=== PATIENT | female | born 1985 | race African-American/Black ===

== ENCOUNTER 2019-06-01 15:08 | Emergency (ER) | payer OTHER, SELFPAY ==
[2019-06-01 15:23] VITALS: BP 114/77; PULSE 97; RESP 18; TEMP 36.7; O2SAT 99
--- NOTE | 2019-06-01 15:26 | ED.GENADULT ---
HPI - General Adult General Chief complaint: Upper Respiratory Infection Stated complaint: Allergies/Sore Throat/Runny nose Time Seen by Provider: 06/01/19 15:43 Source: patient Mode of arrival: ambulatory Limitations: no limitations History of Present Illness HPI narrative: 33-year-old female patient presents to the [facility] with complaints sore throat and cold symptoms for the past 5 to 6 days. Patient denies any fevers. Patient denies any pain to the ears. Patient states she has had a stuffy nose, runny nose, drainage to the back the throat, sore throat and a slight nonproductive cough. Denies any chest pain or shortness of breath. Patient states she has tried [id number] Benadryl and an allergy pill along with some ibuprofen for her symptoms. Patient denies using humidifier. Patient states that she did get a flu shot this year. Related Data Allergies Allergy/AdvReac Type Severity Reaction Status Date / Time aspirin Allergy Unknown Rash Verified 06/01/19 15:34 Penicillins Allergy Unknown Anaphylaxis Verified 06/01/19 15:34 Review of Systems Review of Systems: Narrative: CONSTITUTIONAL: Denies fever, chills, or sweats. EYES: Denies visual changes, redness, or discharge. ENT: Positive rhinorrhea, congestion, sore throat, denies otalgia. CARDIOVASCULAR: Denies chest pain, palpitations, or edema. RESPIRATORY: Positive cough, denies dyspnea. GASTROINTESTINAL: Denies abdominal pain, nausea, vomiting, or diarrhea. GENITOURINARY: Denies dysuria or hematuria. SKIN: Denies rash or itching. MUSCULOSKELETAL: Denies back pain, joint pain, or myalgia. NEUROLOGIC: Denies headache, numbness, or weakness. PSYCHIATRIC: Denies anxiety or depression. PMFSH Social History Social History Gender identity (if verbalized by the patient): Female Comments At the time of my signature I agree with nursing past medical history, surgical, social, and family history. There is no relevant family history pertinent to the presenting complaint. Exam Narrative: Exam Narrative: GENERAL: Well-appearing, well-nourished, and in no acute distress. HEAD: Normocephalic, atraumatic. No tenderness noted to frontal and maxillary sinuses on palpation EYES: PERRLA and EOMI. ENT: Nares with erythema and edema noted bilaterally, no rhinorrhea or epistaxis. Mucous membranes moist. Posterior pharynx with slight erythema but no tonsil enlargement no exudates or lesions present. Bilateral TMs are clear with no erythema or foreign bodies in the canal. NECK: Supple. No lymphadenopathy CHEST: Clear to auscultation. No respiratory distress. HEART: Regular rate and rhythm. No murmur heard. Normal peripheral pulses. ABDOMEN: Soft, nontender, nondistended, normal active bowel sounds. EXTREMITIES: Normal range of motion. No edema. SKIN: Warm, dry, no rash. NEURO: No focal deficits. Alert and oriented x3. Course Vital Signs Vital signs: Vital Signs Temperature 36.7 C 06/01/19 15:23 Pulse Rate 97 06/01/19 15:23 Respiratory Rate 18 06/01/19 15:23 Blood Pressure 114/77 06/01/19 15:23 Pulse Oximetry 99 06/01/19 15:23 Temperature 36.7 C 06/01/19 15:23 Pulse Rate 97 06/01/19 15:23 Respiratory Rate 18 06/01/19 15:23 Blood Pressure 114/77 06/01/19 15:23 Pulse Oximetry 99 06/01/19 15:23 Vital signs reviewed. Medical Decision Making Differential Diagnosis Differential Diagnosis: Differential diagnosis: Allergic rhinitis, chronic sinusitis, tonsillitis, acute sinusitis, infectious mononucleosis, seasonal influenza, pertussis, diphtheria, meningococcal disease, viral syndrome, viral bronchitis, RSV. Discussed with patient that she does have some swelling noted to both nares which is most likely why she is got the drainage going to the back of her throat. Discussed with her I think that is the sinus drainage most likely causing the sore throat. Discussed with her that I want her to
== END 2019-06-01 15:53 | disposition home or self-care (01) ==
PROVIDERS: Emergency Provider Nurse Practitioner Family
DX: J06.9 Acute upper respiratory infection, unspecified (principal); J01.90 Acute sinusitis, unspecified; R05 Cough; J02.9 Acute pharyngitis, unspecified; R01.1 Cardiac murmur, unspecified
CPT/HCPCS: 99213; G0463

== ENCOUNTER 2020-09-30 13:25 | Emergency (ER) | payer OTHER, SELFPAY ==
[2020-09-30 13:35] VITALS: BP 110/67; PULSE 85; RESP 16; TEMP 36.6; O2SAT 100
--- NOTE | 2020-09-30 13:36 | ED.SKABFB ---
HPI - Skin/Abscess/Foreign Bdy General Chief complaint: Skin/Abscess/Foreign Body Stated complaint: Insect bite Time Seen by Provider: 09/30/20 13:38 Source: patient and RN notes reviewed Mode of arrival: ambulatory Limitations: no limitations History of Present Illness HPI narrative: 35-year-old female presents to the [facility] with complaints of being bit by bedbugs. States the bed she was sleeping in on September 28 that she was able to catch to bedbugs and kilogram. Has multiple bites that are big, red, swollen, warm to touch and extremely itchy. 2 to the right knee are 2 to half centimeters in diameter red, raised without fluctuance. Patient states they do itch. Denies fevers. No chest pain or shortness of breath. No abdominal pain. Related Data Home Medications Medication Instructions Recorded Confirmed ferrous sulfate 325 mg PO DAILY 09/30/20 09/30/20 multivit with min-folic acid 1 tablet PO DAILY 09/30/20 09/30/20 [Adult One Daily Multivitamin] Allergies Allergy/AdvReac Type Severity Reaction Status Date / Time aspirin Allergy Unknown Rash Verified 09/30/20 13:43 Penicillins Allergy Unknown Anaphylaxis Verified 09/30/20 13:43 diphenhydramine Allergy Unknown Verified 09/30/20 13:43 [From Benadryl] Review of Systems Review of Systems: All systems reviewed & are unremarkable except as noted in HPI and below Constitutional: Constitutional: Reports no additional constitutional complaints, Denies chills and Denies fever(s) Eyes: Eyes: Reports no additional eye complaints ENT: Reports system reviewed and no additional complaints, except as documented Cardiovascular: Cardiovascular: Reports no additional cardiovascular complaints and Denies chest pain Respiratory: Respiratory: Reports no additional respiratory complaints Gastrointestinal: Gastrointestinal: Reports no additional gastrointestinal complaints Musculoskeletal: Musculoskeletal: Reports no additional musculoskeletal complaints Integumentary/Breasts: Skin/Breast: Reports erythema (Bilateral legs, worse right knee. 1 upper chest) Neurologic: Reports system reviewed and no additional complaints, except as documented, Denies dizziness, Denies headache(s), Denies focal weakness and Denies numbness Psychiatric: Psychiatric: Reports no additional psychiatric complaints Allergic/Immunologic: Allergic/Immunologic: Reports no additional allergic/immunologic complaints, Denies lip swelling, Denies throat swelling, Denies tongue swelling and Denies wheezing PMFSH Social History Social History Gender identity (if verbalized by the patient): Female Comments At the time of my signature, I reviewed and agree with the nursing past medical, surgical, social, and family history. There is no relevant family history pertinent to the patient complaint. Exam Const: General: healthy appearing, no acute distress and alert Nutritional Appearance: well nourished Orientation/consciousness: patient oriented x3 Limitations: no limitations HENMT: Head: normal to inspection Eyes: Conjunctivae: conjunctivae normal Pupils: Equal, round and reactive pupils present Neck: Neck: normal visual inspection, no lymphadenopathy and no meningeal signs Chest: Chest palpation & inspection: normal inspection of the chest Resp: Effort & Inspection: normal respiratory effort and no use of accessory muscles Auscultation: clear to auscultation bilaterally, no crackles, no rales, no rhonchi and no wheezes Cardio: Rate: regular rate Rhythm: regular rhythm Skin: Rashes: no rashes Wounds: wounds noted Other: 2 areas anterior right knee, red swollen hot to touch. Right knee has no a fluctuant area. Multiple smaller red areas to his lower legs. 1 to the upper chest without signs of infection. Neuro: General: patient oriented x3, moves all extremities, no meningeal signs and no focal motor deficits Speech: normal speech Gai
[2020-09-30 13:45] VITALS: BP 110/67; PULSE 85; RESP 16; TEMP 36.6; O2SAT 100
== END 2020-09-30 13:49 | disposition home or self-care (01) ==
PROVIDERS: Emergency Provider Nurse Practitioner
DX: L08.9 Local infection of the skin and subcutaneous tissue, unspecified (principal); S80.261A Insect bite (nonvenomous), right knee, initial encounter; S80.862A Insect bite (nonvenomous), left lower leg, initial encounter; S80.861A Insect bite (nonvenomous), right lower leg, initial encounter; S20.369A Insect bite (nonvenomous) of unspecified front wall of thorax, initial encounter; W57.XXXA Bitten or stung by nonvenomous insect and other nonvenomous arthropods, initial encounter; R01.1 Cardiac murmur, unspecified
CPT/HCPCS: 99213; G0463

== ENCOUNTER 2020-12-26 13:05 | Emergency (ER) | payer OTHER, SELFPAY ==
[2020-12-26 13:10] VITALS: BP 116/68; PULSE 70; RESP 16; TEMP 36.8; O2SAT 100
--- NOTE | 2020-12-26 13:43 | ED.DENTAL ---
HPI - Dental/Oral General Chief complaint: Dental/Oral Stated complaint: gum pain Time Seen by Provider: 12/26/20 13:39 Source: patient and RN notes reviewed Mode of arrival: ambulatory Limitations: no limitations History of Present Illness HPI Narrative: Patient presents today complaining of upper and lower gum pain and swelling, blood with brushing x2 weeks. Denies pain in his tooth, but does report some left lower jaw swelling. Currently rates her pain 8/10 and has been taking Aleve with mild relief. Patient has an appointment with a dentist set up in January and February. MD Complaint: tooth pain (Gum pain) Related Data Home Medications Medication Instructions Recorded Confirmed ferrous sulfate 325 mg PO DAILY 09/30/20 09/30/20 multivit with min-folic acid 1 tablet PO DAILY 09/30/20 09/30/20 [Adult One Daily Multivitamin] Allergies Allergy/AdvReac Type Severity Reaction Status Date / Time aspirin Allergy Unknown Rash Verified 09/30/20 13:43 Penicillins Allergy Unknown Anaphylaxis Verified 09/30/20 13:43 diphenhydramine Allergy Unknown Verified 09/30/20 13:43 [From Bernardo] Review of Systems Review of Systems: CONSTITUTIONAL: Denies body aches, fever, chills, or sweats. EYES: Denies visual changes, redness, or discharge. ENT: Denies rhinorrhea, congestion, sore throat, or otalgia.+ Gum pain and swelling CARDIOVASCULAR: Denies chest pain, palpitations, or edema. RESPIRATORY: Denies cough or dyspnea. GASTROINTESTINAL: Denies abdominal pain, nausea, vomiting, or diarrhea. GENITOURINARY: Denies dysuria or hematuria. SKIN: Denies rash, itching, or wounds. MUSCULOSKELETAL: Denies back pain, joint pain, or myalgia. NEUROLOGIC: Denies headache, numbness, tingling, or weakness. PSYCH: Denies depression or anxiety. PMFSH Social History Social History Gender identity (if verbalized by the patient): Female Comments At time of signature, I have reviewed and agree with nursing past medical, surgical, social and family history unless otherwise noted. Please see nursing chart for further information. There is no relevant family history pertinent to the presenting complaint Exam Narrative: GENERAL: Well-appearing, well-nourished, and in no acute distress. HEAD: Normocephalic, atraumatic. EYES: EOMI. No redness or drainage. Conjunctivae normal. ENT: Mucous membranes pink and moist. Nares clear. No rhinorrhea. Throat normal. Uvula midline. Gums are erythematous and swollen on the upper and lower arches. No facial swelling noted. No obvious periapical abscesses noted. NECK: Normal AROM. Supple. No lymphadenopathy. CHEST: No respiratory distress. Clear to auscultation. HEART: Regular rate and rhythm. No murmur appreciated. Normal peripheral pulses. EXTREMITIES: Normal range of motion. No edema. SKIN: Warm, dry, no rash. Capillary refill normal. Normal skin turgor. NEURO: No focal deficits. Alert and oriented x3. Gait steady. PSYCH: Normal affect. No signs of depression or anxiety. Course Vital Signs Vital signs: Vital Signs Temperature 98.2 F 12/26/20 13:10 Pulse Rate 70 12/26/20 13:10 Respiratory Rate 16 12/26/20 13:10 Blood Pressure 116/68 12/26/20 13:10 Pulse Oximetry 100 12/26/20 13:10 Temperature 98.2 F 12/26/20 13:10 Pulse Rate 70 12/26/20 13:10 Respiratory Rate 16 12/26/20 13:10 Blood Pressure 116/68 12/26/20 13:10 Pulse Oximetry 100 12/26/20 13:10 Reviewed MDM - Dental/Oral Differential Diagnosis Differential diagnosis: Likely gingival abscess, dental caries, toothache, dental abscess and other (Gingivitis) Critical Care Time Critical Care Time Critical Care Time: No Discharge Plan Discharge Clinical Impression: Gingivitis Patient Disposition: Home, Self-Care Condition: Stable Instructions: Antibiotic Form, Gingivitis (ED) Additional Instructions: Please take the clindamyci
== END 2020-12-26 13:50 | disposition home or self-care (01) ==
PROVIDERS: Emergency Provider Nurse Practitioner
DX: K05.10 Chronic gingivitis, plaque induced (principal); R01.1 Cardiac murmur, unspecified
CPT/HCPCS: 99213; G0463

== ENCOUNTER 2022-12-02 19:18 | Emergency (ER) | payer OTHER, SELFPAY ==
[2022-12-02 19:33] VITALS: BP 120/82; PULSE 93; RESP 18; TEMP 36.8; O2SAT 100
--- NOTE | 2022-12-02 20:01 | ED.URI ---
HPI - URI/Sore Throat General Chief Complaint: Upper Respiratory Infection Stated Complaint: Sore Throat Time Seen by Provider: 12/02/22 19:55 Source: patient and RN notes reviewed Mode of arrival: ambulatory Limitations: no limitations History of Present Illness HPI Narrative: Patient presents today with a 5-6 day history of hoarseness, rhinorrhea, congestion, sore throat. Cough appeared today. Denies fever. She has been taking sinus medication without relief. History of tonsillectomy. Denies sick contacts. Related Data Home Medications Medication Instructions Recorded Confirmed ferrous sulfate 325 mg (65 mg 325 mg PO DAILY 09/30/20 12/02/22 iron) tablet multivitamin with minerals-folic 1 tablet PO DAILY 09/30/20 12/02/22 acid 0.4 mg tablet (Adult One Daily Multivitamin) Allergies Allergy/AdvReac Type Severity Reaction Status Date / Time aspirin Allergy Unknown Rash Verified 12/02/22 19:31 Penicillins Allergy Unknown Anaphylaxis Verified 12/02/22 19:31 diphenhydramine Allergy Unknown Verified 12/02/22 19:31 [From Bernardo] Review of Systems Review of Systems: CONSTITUTIONAL: Denies body aches, fever, chills, or sweats. EYES: Denies visual changes, redness, or discharge. ENT: Denies otalgia.+ rhinorrhea, congestion, hoarseness, sore throat CARDIOVASCULAR: Denies chest pain, palpitations, or edema. RESPIRATORY: Denies dyspnea.+ cough GASTROINTESTINAL: Denies abdominal pain, nausea, vomiting, or diarrhea. GENITOURINARY: Denies dysuria or hematuria. SKIN: Denies rash, itching, or wounds. MUSCULOSKELETAL: Denies back pain, joint pain, or myalgia. NEUROLOGIC: Denies headache, numbness, tingling, or weakness. PSYCH: Denies depression or anxiety. [facility] Surgical History Surgical History (Updated 12/02/22 @ 20:03 by Mini Amin, JEREMY, BC) Hx of tonsillectomy Social History Social History Gender identity (if verbalized by the patient): Female Comments At time of signature, I have reviewed and agree with nursing past medical, surgical, social and family history unless otherwise noted. Please see nursing chart for further information. There is no relevant family history pertinent to the presenting complaint Exam Narrative: GENERAL: Mildly ill-appearing, well-nourished, and in no acute distress. HEAD: Normocephalic, atraumatic. EYES: EOMI. No redness or drainage. Conjunctivae normal. ENT: Mucous membranes pink and moist. Nares congested with rhinorrhea. TMs normal bilaterally. Throat mildly erythematous. Uvula midline. Voice is hoarse NECK: Normal AROM. Supple. No lymphadenopathy. CHEST: No respiratory distress. Clear to auscultation. HEART: Regular rate and rhythm. No murmur appreciated. Normal peripheral pulses. EXTREMITIES: Normal range of motion. No edema. SKIN: Warm, dry, no rash. Capillary refill normal. Normal skin turgor. NEURO: No focal deficits. Alert and oriented x3. Gait steady. PSYCH: Normal affect. No signs of depression or anxiety. Course Course Level of Care: Express Care Visit Vital Signs Vital signs: Vital Signs Temperature 98.3 F 12/02/22 19:33 Pulse Rate 93 12/02/22 19:33 Respiratory Rate 18 12/02/22 19:33 Blood Pressure 120/82 12/02/22 19:33 Pulse Oximetry 100 12/02/22 19:33 Oxygen Delivery Room Air 12/02/22 19:33 Temperature 98.3 F 12/02/22 19:33 Pulse Rate 93 12/02/22 19:33 Respiratory Rate 18 12/02/22 19:33 Blood Pressure 120/82 12/02/22 19:33 Pulse Oximetry 100 12/02/22 19:33 Oxygen Delivery Room Air 12/02/22 19:33 Reviewed. Pt has been instructed to follow up with her PCP regarding her elevated blood pressure today. MDM - URI/Sore Throat MDM Narrative Medical decision making narrative: Rapid strep negative. Symptoms likely viral in etiology. Will treat with prednisone and Tessalon Perles. Anticipatory guidance given. Diff
== END 2022-12-02 20:39 | disposition home or self-care (01) ==
PROVIDERS: Emergency Provider Nurse Practitioner
DX: J06.9 Acute upper respiratory infection, unspecified (principal)
CPT/HCPCS: 87081; 87880; 99213; G0463

== ENCOUNTER 2022-12-20 08:49 | Emergency (ER) | payer OTHER, SELFPAY ==
[2022-12-20 09:02] VITALS: BP 129/71; PULSE 79; RESP 16; TEMP 36.9; O2SAT 100
--- NOTE | 2022-12-20 09:11 | ED.SKABFB ---
HPI - Skin/Abscess/Foreign Bdy General Chief complaint: Skin/Abscess/Foreign Body Stated complaint: spot right side of face Time Seen by Provider: 12/20/22 09:11 Source: patient Mode of arrival: ambulatory Limitations: no limitations History of Present Illness HPI narrative: 37-year-old female presents with swollen, tender area to right cheek for 2 days. Patient concerned for spider bite. Afebrile. No other complaints today. All systems reviewed and negative except as noted above. Related Data Home Medications Medication Instructions Recorded Confirmed ferrous sulfate 325 mg (65 mg 325 mg PO DAILY 09/30/20 12/02/22 iron) tablet multivitamin with minerals-folic 1 tablet PO DAILY 09/30/20 12/02/22 acid 0.4 mg tablet (Adult One Daily Multivitamin) Allergies Allergy/AdvReac Type Severity Reaction Status Date / Time aspirin Allergy Unknown Rash Verified 12/02/22 19:31 Penicillins Allergy Unknown Anaphylaxis Verified 12/02/22 19:31 diphenhydramine Allergy Unknown Verified 12/02/22 19:31 [facility] Review of Systems Review of Systems: CONSTITUTIONAL: Denies fever, chills, or sweats. EYES: Denies visual changes, redness, or discharge. ENT: Denies rhinorrhea, congestion, sore throat, or otalgia. CARDIOVASCULAR: Denies chest pain, palpitations, or edema. RESPIRATORY: Denies cough or dyspnea. GASTROINTESTINAL: Denies abdominal pain, nausea, vomiting, or diarrhea. GENITOURINARY: Denies dysuria or hematuria. SKIN: Denies rash or itching. Patient reports swollen, tender area to right cheek. MUSCULOSKELETAL: Denies back pain, joint pain, or myalgia. NEUROLOGIC: Denies headache, numbness, or weakness. PSYCHIATRIC: Denies anxiety or depression. All other systems reviewed are negative, except as documented in HPI. [facility] Surgical History Surgical History (Updated 12/02/22 @ 20:03 by Mini Amin, JEREMY, TERA) Hx of tonsillectomy Social History Social History Gender identity (if verbalized by the patient): Female Comments At time of signature, agree with nursing past medical, surgical, social and family history. There is no relevant family history pertinent to the presenting complaint. Exam Narrative: GENERAL: This is a well-nourished, well-developed patient, in no apparent distress. HEAD: normocephalic, atraumatic. EYES: PERRL. Sclera clear/white. Vision is grossly intact. EARS: External ears normal NOSE: External nose normal NECK: Neck supple, non-tender without lymphadenopathy, masses or thyromegaly. CARDIOVASCULAR: Regular rate and rhythm without murmurs, gallops, or rubs. RESPIRATORY: Clear to auscultation. Breath sounds equal bilaterally. No wheezes, rales, or rhonchi. SKIN: warm, Dry, intact with no suspicious rash, good texture and turgor. erythematous pimple to R nasolabial fold. approx. 1cm diameter. tender on palpation. no fluctuance. NEURO: awake, alert, and oriented to person, place and time. There were no obvious focal neurologic abnormalities. EXTREMITIES: No joint tenderness, effusion, or edema noted. Course Course Level of Care: Express Care Visit Vital Signs Vital signs: Vital Signs Temperature 36.9 C 12/20/22 09:02 Pulse Rate 79 12/20/22 09:02 Respiratory Rate 16 12/20/22 09:02 Blood Pressure 129/71 12/20/22 09:02 Pulse Oximetry 100 12/20/22 09:02 Oxygen Delivery Room Air 12/20/22 09:02 Temperature 36.9 C 12/20/22 09:02 Pulse Rate 79 12/20/22 09:02 Respiratory Rate 16 12/20/22 09:02 Blood Pressure 129/71 12/20/22 09:02 Pulse Oximetry 100 12/20/22 09:02 Oxygen Delivery Room Air 12/20/22 09:02 Reviewed MDM - Skin/Abscess/Foreign Bdy MDM Narrative Medical decision making narrative: Patient is aware of diagnosis, understands and agrees to treatment plan. Anticipatory guidance given. Patient agrees to follow-up as directed and is aware
== END 2022-12-20 09:54 | disposition home or self-care (01) ==
PROVIDERS: Emergency Provider Nurse Practitioner Family; PCP Registered Nurse
DX: R23.8 Other skin changes (principal)
CPT/HCPCS: 99211; G0463

== ENCOUNTER 2023-04-09 12:43 | Emergency (ER) | payer OTHER, SELFPAY ==
[2023-04-09 13:02] VITALS: BP 111/66; PULSE 122; RESP 16; TEMP 38.9; O2SAT 98
--- NOTE | 2023-04-09 13:17 | ED.URI ---
HPI - URI/Sore Throat General Chief Complaint: Upper Respiratory Infection Stated Complaint: dizzy,fever Time Seen by Provider: 04/09/23 13:17 Source: patient and RN notes reviewed Mode of arrival: ambulatory Limitations: no limitations History of Present Illness HPI Narrative: 37-year-old female presented for complaint of headache, sore throat, fever, body aches. Onset last night. Endorses son tested positive for influenza 2 days ago. Not taking anything for symptoms. Denies shortness of breath, wheezing, nausea, vomiting, diarrhea, or lethargy. MD elicited complaint: cough Related Data Home Medications Medication Instructions Recorded Confirmed ferrous sulfate 325 mg (65 mg 325 mg PO DAILY 09/30/20 12/02/22 iron) tablet multivitamin with minerals-folic 1 tablet PO DAILY 09/30/20 12/02/22 acid 0.4 mg tablet (Adult One Daily Multivitamin) Allergies Allergy/AdvReac Type Severity Reaction Status Date / Time aspirin Allergy Unknown Rash Verified 12/02/22 19:31 Penicillins Allergy Unknown Anaphylaxis Verified 12/02/22 19:31 diphenhydramine Allergy Unknown Verified 12/02/22 19:31 [facility] Review of Systems Review of Systems: CONSTITUTIONAL: Endorses malaise, chills, sweats, fever EYES: Denies visual changes, redness, or discharge ENT: Reports rhinorrhea, congestion, sore throat denies pain, otalgia CARDIOVASCULAR: Denies chest pain, palpitations, edema RESPIRATORY: Reports cough, Denies dyspnea GASTROINTESTINAL: Denies abdominal pain, nausea, vomiting, diarrhea SKIN: Denies rash or itching MUSCULOSKELETAL: Endorses myalgia NEUROLOGIC: Endorses headache PMFSH Past Medical History Medical History (Updated 04/09/23 @ 13:36 by Alayna Leroy APRN) No pertinent past medical history Surgical History Surgical History Hx of tonsillectomy Social History Social History Gender identity (if verbalized by the patient): Female Exam Narrative: GENERAL: Ill-appearing, nontoxic no acute distress. EYES: PERRLA, conjunctivae clear ENT: Mucous membranes moist. TM pearly pizarro with dull light reflex bilaterally; no tragal tenderness. Oropharynx mildly erythematous without lesions or exudate, no drooling, no hoarseness, no trismus, uvula midline. No tripod positioning, muffled voice, soft palate or pharyngeal wall bulging NECK: Supple. No lymphadenopathy CHEST: Clear to auscultation, breath sounds equal. No wheezing, rhonchi, rales, or stridor. No respiratory distress, speaks in full sentences. HEART: Regular rate and rhythm. No murmur heard. SKIN: Warm, dry, no rash. NEURO: Alert and oriented x3. PSYCH: Normal mood and affect Course Course Emergency Course: Patient is aware of diagnosis, understands and agrees to treatment plan. Anticipatory guidance given. Patient agrees to follow-up as directed and is aware of reasons to seek care at the emergency department. Portions of this record may have been created with voice recognition software Level of Care: Express Care Visit Vital Signs Vital signs: Vital Signs Temperature 102.0 F H 04/09/23 13:02 Pulse Rate 122 H 04/09/23 13:02 Respiratory Rate 16 04/09/23 13:02 Blood Pressure 111/66 04/09/23 13:02 Pulse Oximetry 98 04/09/23 13:02 Oxygen Delivery Room Air 04/09/23 13:02 Temperature 102.0 F H 04/09/23 13:02 Pulse Rate 122 H 04/09/23 13:02 Respiratory Rate 16 04/09/23 13:02 Blood Pressure 111/66 04/09/23 13:02 Pulse Oximetry 98 04/09/23 13:02 Oxygen Delivery Room Air 04/09/23 13:02 reviewed MDM - URI/Sore Throat MDM Narrative Medical decision making narrative: Positive flu. Discussed physical exam findings. Discussed risks and benefits associated with Tamiflu, she requests a prescription. Advised supportive measures and signs/symptoms to go to the ER. Pt is leonardoia
== END 2023-04-09 13:39 | disposition home or self-care (01) ==
PROVIDERS: Emergency Provider Nurse Practitioner Family; PCP Registered Nurse
DX: J10.1 Influenza due to other identified influenza virus with other respiratory manifestations (principal); Z20.822 Contact with and (suspected) exposure to COVID-19
CPT/HCPCS: 87081; 87426; 87804; 87880; 99213; G0463

== ENCOUNTER 2023-09-16 17:07 | Emergency (ER) | payer OTHER, SELFPAY ==
[2023-09-16 17:18] VITALS: BP 113/65; PULSE 98; RESP 16; TEMP 37.1; O2SAT 100
--- NOTE | 2023-09-16 17:34 | ED.SKABFB ---
HPI - Skin/Abscess/Foreign Bdy General Chief complaint: Skin/Abscess/Foreign Body Stated complaint: Insect Bites on Leg and Nausea Time Seen by Provider: 09/16/23 17:31 Source: patient and RN notes reviewed Mode of arrival: ambulatory Limitations: no limitations History of Present Illness HPI narrative: 38-year-old female presents concern for bedbug bites. Reports she sat on her cousins couch and when she left she had bites in in the area of her exposed skin on the back of her legs. She reports since then she has not got any more bites or spread for rash. She reports she has put home remedies on without relief of itching. Reports the bites are starting to become swollen. She denies swollen lips, swollen tongue, trouble breathing MD complaint: insect bite/sting Related Data Home Medications Medication Instructions Recorded Confirmed ferrous sulfate 325 mg (65 mg 325 mg PO DAILY 09/30/20 12/02/22 iron) tablet multivitamin with minerals-folic 1 tablet PO DAILY 09/30/20 12/02/22 acid 0.4 mg tablet (Adult One Daily Multivitamin) Allergies Allergy/AdvReac Type Severity Reaction Status Date / Time aspirin Allergy Unknown Rash Verified 09/16/23 17:24 Penicillins Allergy Unknown Anaphylaxis Verified 09/16/23 17:24 diphenhydramine Allergy Unknown Verified 09/16/23 17:24 [From [facility]] Review of Systems Review of Systems: CONSTITUTIONAL: Denies malaise, chills, sweats, or fever. EYES: Denies redness, or discharge. ENT: Denies rhinorrhea, congestion, swollen lips, swollen tongue CARDIOVASCULAR: Denies chest pain, palpitations, or edema. RESPIRATORY: Denies cough or dyspnea. GASTROINTESTINAL: Denies abdominal pain, nausea, vomiting SKIN: Reports a 2 swollen insect bites on the back of her legs MUSCULOSKELETAL: Denies joint pain or myalgia. NEUROLOGIC: Denies headache. All systems reviewed & are unremarkable except as noted in HPI and below PMFSH Past Medical History Medical History (Updated 09/16/23 @ 17:40 by Pebbles Guy NP) No pertinent past medical history Surgical History Surgical History Hx of tonsillectomy Social History Social History Gender identity (if verbalized by the patient): Female Comments At time of signature, agree with nursing past medical, surgical, social and family history. There is no relevant family history pertinent to the presenting complaint Exam Narrative: GENERAL: Well-appearing, well-nourished, and in no acute distress. HEAD: Normocephalic, atraumatic. EYES: PERRLA, conjunctivae clear, and EOMI. ENT: Mucous membranes moist. Oropharynx without edema, erythema or lesions. NECK: Supple. No lymphadenopathy CHEST: Clear to auscultation. No respiratory distress. HEART: Regular rate and rhythm. SKIN: Warm, dry. Erythematous papules, some mild swelling noted to the posterior legs NEURO: Alert and oriented x3. PSYCH: Normal mood and affect Course Course Emergency Course: Patient is aware of diagnosis, understands and agrees to treatment plan. Anticipatory guidance given. Patient agrees to follow-up as directed and is aware of reasons to seek care at the emergency department. Portions of this record may have been created with voice recognition software Level of Care: Express Care Visit Vital Signs Vital signs: Vital Signs Temperature 98.8 F 09/16/23 17:18 Pulse Rate 98 09/16/23 17:18 Respiratory Rate 16 09/16/23 17:18 Blood Pressure 113/65 09/16/23 17:18 Pulse Oximetry 100 09/16/23 17:18 Oxygen Delivery Room Air 09/16/23 17:18 Temperature 98.8 F 09/16/23 17:18 Pulse Rate 98 09/16/23 17:18 Respiratory Rate 16 09/16/23 17:18 Blood Pressure 113/65 09/16/23 17:18 Pulse Oximetry 100 09/16/23 17:18 Oxygen Delivery Room Air 09/16/23 17:18 Reviewed. MDM - Skin/Abscess/Foreign Bdy MDM Narrative
== END 2023-09-16 17:45 | disposition home or self-care (01) ==
PROVIDERS: Emergency Provider Nurse Practitioner; PCP Registered Nurse
DX: S80.862A Insect bite (nonvenomous), left lower leg, initial encounter (principal); S80.861A Insect bite (nonvenomous), right lower leg, initial encounter; W57.XXXA Bitten or stung by nonvenomous insect and other nonvenomous arthropods, initial encounter
CPT/HCPCS: 99213; G0463

== ENCOUNTER 2024-02-03 15:12 | Emergency (ER) | payer SELFPAY ==
--- NOTE | 2024-02-03 15:25 | ED.URI ---
HPI - URI/Sore Throat General Chief Complaint: Upper Respiratory Infection Stated Complaint: Sore Throat Time Seen by Provider: 02/03/24 15:25 Source: patient Mode of arrival: ambulatory Limitations: no limitations History of Present Illness HPI Narrative: 38-year-old female presents with complaint of cough, chest congestion, fatigue, low-grade fever, sore throat for 3-4 days. No chest pain or shortness of breath. Taking [id number] Robitussin to treat symptoms. Patient reports that her son has had exposure to pneumonia from school. They are both sick with similar symptoms. all systems reviewed and negative except as noted above. Related Data Home Medications Medication Instructions Recorded Confirmed ferrous sulfate 325 mg (65 mg 325 mg PO DAILY 09/30/20 12/02/22 iron) tablet Allergies Allergy/AdvReac Type Severity Reaction Status Date / Time aspirin Allergy Unknown Rash Verified 02/03/24 15:20 Penicillins Allergy Unknown Anaphylaxis Verified 02/03/24 15:20 diphenhydramine Allergy Unknown Verified 02/03/24 15:20 [From [facility]] Review of Systems Review of Systems: CONSTITUTIONAL: reports fever, chills, or sweats. EYES: Denies visual changes, redness, or discharge. ENT: reports rhinorrhea, congestion, sore throat. Denies otalgia. CARDIOVASCULAR: Denies chest pain, palpitations, or edema. RESPIRATORY: Reports cough. Denies dyspnea. GASTROINTESTINAL: Denies abdominal pain, nausea, vomiting, or diarrhea. GENITOURINARY: Denies dysuria or hematuria. SKIN: Denies rash or itching. MUSCULOSKELETAL: Denies back pain, joint pain, or myalgia. NEUROLOGIC: Denies headache, numbness, or weakness. PSYCHIATRIC: Denies anxiety or depression. All other systems reviewed are negative, except as documented in HPI. [facility] Past Medical History Medical History (Updated 02/03/24 @ 15:51 by Aminata Kovacs NP) No pertinent past medical history Surgical History Surgical History Hx of tonsillectomy Social History Social History Gender identity (if verbalized by the patient): Female Comments At time of signature, agree with nursing past medical, surgical, social and family history. There is no relevant family history pertinent to the presenting complaint. Exam Narrative: GENERAL: This is a well-nourished, well-developed patient, ill-appearing but no acute distress HEAD: normocephalic, atraumatic. EYES: PERRL. Sclera clear/white. Vision is grossly intact. EARS: External ears normal, auditory canals clear and without drainage, TMs normal without perforation. Hearing grossly intact. NOSE: External nose normal with clear nasal drainage, mild congestion, erythema to bilateral nares THROAT: Mucous membranes moist, erythematous with postnasal drainage NECK: Neck supple, non-tender without lymphadenopathy, masses or thyromegaly. CARDIOVASCULAR: Regular rate and rhythm without murmurs, gallops, or rubs. RESPIRATORY: Clear to auscultation. Breath sounds equal bilaterally. No wheezes, rales, or rhonchi. SKIN: warm, Dry, intact with no suspicious lesions or rash, good texture and turgor. NEURO: awake, alert, and oriented to person, place and time. There were no obvious focal neurologic abnormalities. EXTREMITIES: No joint tenderness, effusion, or edema noted. Course Course Level of Care: Express Care Visit Vital Signs Vital signs: Vital Signs Temperature 37.7 C H 02/03/24 15:31 Pulse Rate 86 02/03/24 15:31 Respiratory Rate 20 02/03/24 15:31 Blood Pressure 106/73 02/03/24 15:31 Pulse Oximetry 100 02/03/24 15:31 Oxygen Delivery Room Air 02/03/24 15:31 Temperature 37.7 C H 02/03/24 15:31 Pulse Rate 86 02/03/24 15:31 Respiratory Rate 20 02/03/24 15:31 Blood Pressure 106/73 02/03/24 15:31 Pulse Oximetry 100 02/03/24 15:31 Oxygen Delivery Room Air 02/03/24 15:31 reviewed MDM - URI/Sore Throat MDM Narrative Medical decision making narrative: negative COVID, influenza and strep. Strep culture ordered. Will treat patient with antibiotic due to pneumonia exposure. Patient is aware of diagnosis, understands and agrees to treatment plan. Anticipatory guidance given. Patient agrees to follow-up as directed and is aware of reasons to seek care at the emergency department. Portions of this record may have been created with voice recognition software Lab Data Labs: Lab Results 02/03/24 02/03/24 Range/Units 15:35 15:45 POC Influenza A Ag Negative (Negative) POC Influenza B Ag Negative (Negative) POC SARS CoV-2 Ag Negative (Negative) POC Grp A Strep Screen Negative (Negative) Discharge Plan Discharge Clinical Impression: Upper respiratory infection with cough and congestion, Exposure to pneumonia Patient Disposition: Home, Self-Care Condition: Stable Instructions: Antibiotic Form, Community Acquired Pneumonia (DC) Additional Instructions: Your COVID, influenza and strep test were negative today. take antibiotic as prescribed until gone. Continue taking [id number] medication to treat her symptoms such as DayQuil NyQuil cold and flu. Drink at least 64 oz of water a day. Follow-up with your primary care physician if symptoms are not improving. Prescriptions: New azithromycin 250 mg tablet See Rx Instructions .ROUTE .COMPLEX Qty: 6 0RF Rx Instructions: For 250 mg dose pack: take 500 mg today (day 1), then 250 mg for 4 days (days 2-5) No Action ferrous sulfate 325 mg (65 mg iron) Tablet 325 mg PO DAILY Follow-up/Referrals: Mariana,MILAGROS Salazar [Primary Care Provider] - Time of Disposition: 15:51
[2024-02-03 15:31] VITALS: BP 106/73; PULSE 86; RESP 20; TEMP 37.7; O2SAT 100
[2024-02-03 15:43] LABS: EDSTREPNEGPOS1 Negative (Negative)
[2024-02-03 15:53] LABS: EDCOVIDSCREEN Negative (Negative); EDINFLUASCREEN Negative (Negative); EDINFLUBSCREEN Negative (Negative)
== END 2024-02-03 15:55 | disposition home or self-care (01) ==
PROVIDERS: Emergency Provider Nurse Practitioner Family; PCP Registered Nurse
DX: J06.9 Acute upper respiratory infection, unspecified (principal); R05.9 Cough, unspecified; Z20.89 Contact with and (suspected) exposure to other communicable diseases; Z20.822 Contact with and (suspected) exposure to COVID-19
CPT/HCPCS: 87081; 87426; 87804; 87880; 99213; G0463

== ENCOUNTER 2024-12-13 18:35 | Emergency (ER) | payer BC, SELFPAY ==
[2024-12-13 18:43] VITALS: BP 109/69; PULSE 84; RESP 16; TEMP 36.7; O2SAT 100
--- NOTE | 2024-12-13 18:48 | ED_ITS ---
HPI - URI/Sore Throat General Chief Complaint: Fever Stated Complaint: Fever/Chills Time Seen by Provider: 12/13/24 18:38 Source: patient Mode of arrival: ambulatory Limitations: no limitations History of Present Illness HPI Narrative: Patient is a 39-year-old female who presents with 1 day of congestion drainage, cough, throat irritation from a fever. Patient has history of asthma. Patient has used inhaler today, Robitussin, DayQuil/NyQuil and Claritin. Related Data Home Medications ?Medication ?Instructions ?Recorded ?Confirmed ?Last Taken ?Type ferrous sulfate 325 mg (65 mg 325 mg PO DAILY 09/30/20 12/02/22 Unknown History iron) tablet cetirizine 10 mg tablet mg 12/13/24 Unknown History ergocalciferol (vitamin D2) 1,250 12/13/24 Unknown H istory mcg (50,000 unit) capsule omeprazole 40 mg capsule,delayed mg 12/13/24 Unknown History release prednisone 20 mg tablet mg 12/13/24 Unknown History Allergies Allergy/AdvReac Type Severity Reaction Status Date / Time aspirin Allergy Unknown Rash Verified 12/13/24 18:41 Penicillins Allergy Unknown Anaphylaxis Verified 12/13/24 18:41 diphenhydramine (From Allergy Unknown Verified 12/13/24 18:41 Benadryl) Review of Systems Review of Systems: All systems reviewed & are unremarkable except as noted in HPI and below Constitutional: Constitutional: Denies chills, Denies fatigue, Reports fever(s), Denies headache(s), Denies malaise and Denies weakness Eyes: Eyes: Denies blurry vision, Denies itchy eyes and Denies loss of vision ENT: Denies otalgia, Denies headache(s), Reports nasal congestion, Denies sinus pain and Reports sore throat Cardiovascular: Cardiovascular: Denies chest pain, Denies irregular heart rhythm and Denies dyspnea Respiratory: Respiratory: Reports cough and Denies dyspnea Gastrointestinal: Gastrointestinal: Denies abdominal pain, Denies diarrhea, Denies nausea and Denies vomiting Musculoskeletal: Musculoskeletal: Denies back pain, Denies myalgias and Denies arthralgias Integumentary/Breasts: Skin/Breast: Denies pruritus and Denies rash Neurologic: Denies headache(s), Denies loss of vision and Denies weakness Psychiatric: Psychiatric: Reports no additional psychiatric complaints Endocrine: Endocrine: Denies fatigue Allergic/Immunologic: Allergic/Immunologic: Denies itchy eyes PMFSH Past Medical History Medical History No pertinent past medical history Surgical History Surgical History Hx of tonsillectomy Social History Social History Gender identity (if verbalized by the patient): Female Comments At time of signature, agree with nursing past medical, surgical, social and family history. There is no relevant family history pertinent to the presenting complaint. Exam Const: General: cooperative, healthy appearing, comfortable, no acute distress and well nourished Nutritional Appearance: well nourished Orientation/consciousness: patient oriented x3 Limitations: no limitations HENMT: Head: normal to inspection, normocephalic and atraumatic Ears: hearing grossly normal bilaterally, external ears normal, TM's normal bilaterally, EAC's normal and no periauricular adenopathy Face/Nose/Sinus: Normal external nose present, Abnormal mucous membranes and turbinates present erythematous bilateral and diffuse, normal facial exam, sinuses nontender and face symmetric Face and sinus: normal facial exam, sinuses nontender and face symmetric Mouth: Yes Normal oral and palatal mucosa present, Yes lip normal, Yes tongue normal, Yes Normal salivary glands and ducts present, Yes oropharynx normal and Yes moist mucous membranes Teeth and gingiva: dentition normal Throat: posterior oropharynx normal, tonsils normal and uvula midline Eyes: General: appearance normal, both eyes and all related structures Alignment and Position: alignment normal and position normal Periorbital: periorbital findings normal Eyelids: eyelids normal Pupils: Equal, round and reactive pupils present Neck: Neck: normal visual inspection, full ROM, no lymphadenopathy and supple Chest: Chest palpation & inspection: normal inspection of the chest and normal palpation of entire chest wall Resp: Effort & Inspection: normal respiratory effort and able to speak in complete sentences Auscultation: clear to auscultation bilaterally, no crackles, no rales, no rhonchi and no wheezes Cardio: Rate: regular rate Rhythm: regular rhythm Heart sounds: S1 normal heart sound present and S2 normal heart sound present GI: Inspection: normal to inspection Skin: General skin exam: normal color and no rashes or lesions noted Neuro: General: patient oriented x3 and moves all extremities Cranial nerves: Yes Equal, round and reactive pupils present Speech: normal speech Gait exam (Neuro): Normal gait present Extrem: General: normal to inspection, full ROM and no edema Psych: Appearance: grossly normal and well kempt Mental Status: mental status grossly normal Speech and movement: Normal speech and movement present Affect: normal affect Attitude: cooperative Thought process: Normal thought process present Course Course Emergency Course: Discharge instructions reviewed with patient, as well as provided in writing pe r nursing staff. The instructions also include specific and strict return/GO TO THE ER as well as f/u information. All questions have been answered, and the patient deny any further questions with discharge and discharge plan. Portions of this record may have been created with voice recognition software Level of Care: Express Care Visit Vital Signs Vital signs: Vital Signs Temperature 36.7 C 12/13/24 18:43 Pulse Rate 84 12/13/24 18:43 Respiratory Rate 16 12/13/24 18:43 Blood Pressure 109/69 12/13/24 18:43 Pulse Oximetry 100 12/13/24 18:43 Oxygen Delivery Room Air 12/13/24 18:43 Temperature 36.7 C 12/13/24 18:43 Pulse Rate 84 12/13/24 18:43 Respiratory Rate 16 12/13/24 18:43 Blood Pressure 109/69 12/13/24 18:43 Pulse Oximetry 100 12/13/24 18:43 Oxygen Delivery Room Air 12/13/24 18:43 Reviewed MDM - URI/Sore Throat MDM Narrative Medical decision making narrative: Pt well hydrated appearing, in no respiratory distress, hemodynamically stable. Recommend supportive care. The patient is stable at time of discharge the clinical impression was discussed and the patient was given the opportunity to ask questions, which were addressed as completely as possible given the information available at present. Anticipatory guidance and return to care precautions were discussed and the importance of primary care follow-up was stressed and encouraged. The patient voiced understanding of the plan, indications to return, and the need for follow-up. Exam findings show no acute concerns or changes Patient is appropriate for outpatient treatment and follow-up. Differential diagnosis considered: [place] virus, strep pharyngitis, allergic rhinitis, upper respiratory tract infection, sinusitis, rhinosinusitis, nasopharyngitis. viral pharyngitis, otitis media, otitis externa, otitis effusion, foreign body, cerumen impaction, viral syndrome, and influenza.? Medical Records Attestation: I reviewed the patient's medical records. Lab Data Attestation: I reviewed the patient's lab results. Labs: Lab Results 12/13/24 Range/Units 18:50 POC Influenza A Ag Negative (Negative) POC Influenza B Ag Negative (Negative) POC SARS CoV-2 Ag Negative (Negative) Discharge Plan Discharge Clinical Impression: Acute upper respiratory infection Patient Disposition: Home Condition: Stable Instructions: Upper Respiratory Infection (ED) Additional Instructions: Your Covid and flu are both negative Your symptoms are likely due to a viral illness, which is not treated with antibiotics. Viral symptoms can be present for up to a few weeks. -For pain/fever, you may take: Tylenol 650-1000mg by mouth every 4-6 hours. Do not exceed 4000mg in 24 hours. Advil (Ibuprofen) 600 mg by mouth every 6 hours. Do not exceed 2400mg in 24 hours. 8 AM: Tylenol 11 AM: Ibuprofen 2 PM: Tylenol 5 PM: Ibuprofen 8 PM: Tylenol 11 PM: Ibuprofen 2 AM: Tylenol 5 AM: Ibuprofen -Antihistamine medication such as Benadryl/Zyrtec at night and Claritin/Ally during the day can help improve symptoms. -Use Flonase twice a day for 5 days then daily to help reduce the inflammation and dry up your sinuses. -You can also use Sudafed behind the pharmacy counter(12 or 24 hour). Be sure to drink plenty of water with these medications at least 8 ounces with every dose and it is important to drink 8 to 10 glasses of water per day. Water is a natural decongestant -Eat and drink things that are easy to swallow, like tea or soup, or popsicles. -Oral rinses such as: Salt water gargles and/or may use topical anesthetic (eg. Chloraseptic spray) or lozenges to relieve dryness or throat pain). -Frequent hand washing or hand government property inspector is one of the best ways to prevent spread of infection. -Using a vaporizer or humidifier at night will also help thin secretions and help with coughing up phlegm. Call your Primary Care Doctor and make a follow-up appointment in 3 days. If your cough worsens, you develop a fever greater than 103, you develop shaking chills, a fast heartbeat, trouble breathing and/or feel you are are breathing much faster than usual, call your Primary Care Doctor or go to the ER. Patient Language: Haitian Prescriptions: New benzonatate 100 mg capsule 100 mg PO BID PRN (Reason: cough) Qty: 14 0RF albuterol sulfate 90 mcg/actuation HFA aerosol inhaler 2 puff inhalation QID PRN (Reason: shortness of breath or wheezing) Qty: 6.7 0RF fluticasone propionate [Flonase Allergy Relief] 50 mcg/actuation spray,suspension 1 spray intranasal DAILY Qty: 16 0RF Rx Instructions: administer into each nostril No Action ferrous sulfate 325 mg (65 mg iron) Tablet 325 mg PO DAILY prednisone 20 mg tablet omeprazole 40 mg capsule,delayed release(DR/EC) ergocalciferol (vitamin D2) 1,250 mcg (50,000 unit) capsule cetirizine 10 mg tablet Follow-up/Referrals: Mariana,MILAGROS Salazar [Primary Care Provider] - 3 Days Time of Disposition: 19:29
[2024-12-13 19:26] LABS: EDCOVIDSCREEN Negative (Negative); EDINFLUASCREEN Negative (Negative); EDINFLUBSCREEN Negative (Negative)
== END 2024-12-13 19:35 | disposition home or self-care (01) ==
PROVIDERS: Emergency Provider Nurse Practitioner Family; PCP Registered Nurse
DX: J06.9 Acute upper respiratory infection, unspecified (principal); Z20.822 Contact with and (suspected) exposure to COVID-19; J45.909 Unspecified asthma, uncomplicated
CPT/HCPCS: 87426; 87804; 99213; G0463